=== PATIENT | male | born 1955 | race Two or more races ===

== ENCOUNTER 2020-05-26 00:47 | Emergency (ER) | payer MEDICARE, OTHER ==
[~2020-05-26] VITALS: Ht 165.1 cm; Wt 76.2 kg
--- NOTE | 2020-05-26 01:21 | NUR ---
CALLED [facility] AND SPOKE TO BRUNO. PER HIM, DOES WANT THE MID LINE AND NOT THE PIV. PER BRUNO NEXT DOSE OF MEROPENEM IS DUE AT 0600
--- NOTE | 2020-05-26 05:10 | NUR ---
MADE MULTIPLE ATTEMPTS TO START PERIPHERAL IV LINES. UNSUCCESSFUL.
--- NOTE | 2020-05-26 05:22 | NUR ---
PT NITA WOMACK III .
--- NOTE | 2020-05-26 11:43 | NUR ---
PICC LINE NURSE AT BEDSIDE.
--- NOTE | 2020-05-26 12:06 | NUR ---
CALLED [facility] FOR PT. TRANSFER. ETA IS 30 MIN.
[2020-05-26 12:21] VITALS: BP 122/73
--- NOTE | 2020-05-26 12:21 | NUR ---
Patient discharged to home in stable condition. Written and verbal after care instructions given. Patient verbalizes understanding of instruction. Addendum: 05/26/20 at 1221 by ROBERTO patient picked up by private ambulance going back to [facility] in no distress. RU midline in placed.
== END 2020-05-26 12:21 ==
LOC: ER 00:50
DX: Z45.2 Encounter for adjustment and management of vascular access device (principal); I10 Essential (primary) hypertension; K21.9 Gastro-esophageal reflux disease without esophagitis; E11.9 Type 2 diabetes mellitus without complications; F41.9 Anxiety disorder, unspecified; Z98.890 Other specified postprocedural states
CPT/HCPCS: 36569; 99285; C1751